=== PATIENT | female | born 1985 | race Caucasian/White ===

== ENCOUNTER → 2017-11-27 | Emergency (ER) | payer OTHER ==
[~2017-11-27] VITALS: Ht 167.6 cm; Wt 90.7 kg
== END | disposition home or self-care (01) ==
LOC: ER 10:48
DX: N93.8 Other specified abnormal uterine and vaginal bleeding (principal); D64.9 Anemia, unspecified

== ENCOUNTER 2022-08-03 16:16 | Inpatient (IN) | payer OTHER ==
[~2022-08-03] VITALS: Ht 167.6 cm; Wt 99.8 kg
--- NOTE | 2022-08-03 17:22 | NUR ---
PACIENTE ALERTA Y ORIENTADA POR OLIVIER. REFIERE DESDE EL MEDIO ROBERT DIFICULTAD PARA RESPIRAR QUE RELACIONA CON FRIO DE AIRE ACONDICIONADO EN BELLAS ARTES. REFIERE NO TENER CONDICIONES MEDICAS, PACIENTE CNO VACUNA PARA COVID PRUBA CASERA NEGATIVA.
--- NOTE | 2022-08-03 18:32 | NUR ---
SE RECIBE PTE ALERTA ORIENTADA X3. SE KAY MUESTRAS DE LABORATORUO USANDO MEDIDAS ASEPTICAS.SE ADMINISTRAN MEDICAMENTOS BILL ORDEN MEDICA.SE ORIENTA PTE SOBRE OBJETIVO DE [place] MEDICO.
== END 2022-08-11 16:33 | disposition home or self-care (01) | DRG 194 ==
LOC: ER 16:16 → MEDJ 21:59 → SEC-K 21:59 → MEDJ 08-04 17:39
PROVIDERS: ADMIT Internal Medicine; ATTEND Internal Medicine
PROC: BW24ZZZ Computerized Tomography (CT Scan) of Chest and Abdomen (ICD-10-PCS; principal; 2022-08-03)
DX: J16.8 Pneumonia due to other specified infectious organisms (principal); J45.901 Unspecified asthma with (acute) exacerbation; R06.02 Shortness of breath; R09.02 Hypoxemia; D64.9 Anemia, unspecified; Z20.822 Contact with and (suspected) exposure to COVID-19